=== PATIENT | male | born 1940 | race Caucasian/White ===

== ENCOUNTER 2019-04-15 14:35 | Emergency (ER) | payer MEDICARE, BC ==
[~2019-04-15] VITALS: Ht 175.3 cm; Wt 79.4 kg
[~2019-04-15 14:35] MED LIST: AMLO1TAB39 PO; ASPI81TA52 PO; ATOR10TA87 PO; CAT1P; FLO0.4C PO; HYDR25TA4 PO; MULT-1179 PO; TADA5TAB2 PO; cialis
[2019-04-15 15:34] LABS: BASOPHILS # (AUTO) 0.1 X10'3 (0-0.2); BASOPHILS % (AUTO) 0.8 % (0-1); EOSINOPHILS # (AUTO) 0.2 X10'3 (0-0.9); EOSINOPHILS % (AUTO) 1.9 % (0-6); HEMATOCRIT 42.2 % (42.0-52.0); HEMOGLOBIN 14.9 g/dl (14.0-17.9); LYMPHOCYTES # (AUTO) 1.4 X10'3 (1.1-4.8); LYMPHOCYTES % (AUTO) 18.3 % (21-51); MEAN CORPUSCULAR HEMOGLOBIN 32.2 PG (27.0-31.0); MEAN CORPUSCULAR HGB CONC 35.4 g/dL (33.0-36.5); MEAN PLATELET VOLUME 8.2 FL (7.4-10.4); MONOCYTES # (AUTO) 0.7 X10'3 (0-0.9); MONOCYTES % (AUTO) 8.6 % (2-12); NEUTROPHILS # (AUTO) 5.5 X10'3 (1.8-7.7); NEUTROPHILS % (AUTO) 70.4 % (42-75); PLATELET COUNT 169 X10'3 (140-440); RED BLOOD COUNT 4.64 X10'6 (4.70-6.10); WHITE BLOOD COUNT 7.8 X10'3 (4.5-11.0)
[2019-04-15 15:48] LABS: ALANINE AMINOTRANSFERASE 44 U/L (12-78); ALBUMIN 3.5 G/DL (3.4-5.0); ALKALINE PHOSPHATASE 187 IU/L (46-116); ANION GAP 8 (8-16); ASPARTATE AMINO TRANSFERASE 27 U/L (10-37); BILIRUBIN,TOTAL 0.4 MG/DL (0.1-1.0); BLOOD UREA NITROGEN 42 MG/DL (7-18); BUN/CREATININE RATIO 29.8 (5.4-32.0); CHLORIDE 109 MMOL/L (99-107); CREATININE 1.41 MG/DL (0.60-1.10); GLUCOSE 115 MG/DL (70-104); POTASSIUM 4.4 MMOL/L (3.5-5.1); SODIUM 140 MMOL/L (135-145); TOTAL CARBON DIOXIDE 22.8 MMOL/L (24-32); eGFR 48 ML/MIN
--- NOTE | 2019-04-15 17:56 | NUR ---
PATIENT WAS SEEN AT [facility] ON 04/13/2019, FOR HIGH BLOOD PRESSURE. PATIENT'S MEDICATION WAS CHANGED AND HE IS NOT GETTING IMPROVMENT IN BLOOD PRESSURE READINGS AT HOME. IN ADDITION, PATIENT REPORTS BRADYCARDIA AND LETHARGY FROM THE NEW MEDICATION. BP AT PRESENT IS 192/81.
[2019-04-15] MEDS ORDERED: cloNIDine 0.1 mg tablet PO ONE (18:55)
[2019-04-15] MEDS ORDERED: CLON-529 PO (19:10)
[2019-04-15 19:12] VITALS: BP 185/82
[2019-04-15 19:45] LABS: CLARITY,URINE CLEAR (Clear); COLOR,URINE STRAW (Yellow); GLUCOSE, URINE NEGATIVE (Neg); KETONES,URINE NEGATIVE (Neg); LEUKOCYTE ESTERASE ,URINE NEGATIVE (Neg); NITRITES, URINE NEGATIVE (Neg); OCCULT BLOOD,URINE MODERATE (Neg); PROTEIN,URINE >=300 mg/dl (Neg); UROBILINOGEN,URINE 0.2 E.U/dL (0.2-1.0)
[2019-04-15 19:58] LABS: UA COLLECTION TYPE URINAL
[2019-04-15 20:00] LABS: BACTERIA,URINE NONE SEEN /HPF (Neg); RBC,URINE NONE SEEN /HPF (0-2); SQUAMOUS EPITHELIAL CELL,UR FEW /LPF (FEW); WBC,URINE NONE SEEN /HPF (0-4)
== END 2019-04-15 19:50 | disposition home or self-care (01) ==
LOC: ER 14:36
DX: I10 Essential (primary) hypertension (principal); R51 Headache; Z98.890 Other specified postprocedural states; Z79.82 Long term (current) use of aspirin; Z79.899 Other long term (current) drug therapy
CPT/HCPCS: 36415; 70450; 80053; 81001; 84484; 85025; 93005; 99285

== ENCOUNTER 2022-02-17 07:36 | Day surgery (SDC) | payer MEDICARE, BC ==
[~2022-02-17] VITALS: Ht 172.7 cm; Wt 77.0 kg
[~2022-02-17 07:36] MED LIST changes: +CLON-529 PO
[2022-02-17 07:45] VITALS: BP 156/52
[2022-02-17] MEDS ORDERED: LIDOcaine 1% 30ml preserv. free vial SQ STA (08:17)
[2022-02-17] MEDS ORDERED: NIFE90TA44 PO (08:21)
[2022-02-17] MEDS ORDERED: CAT2P TD (08:21)
[2022-02-17] MEDS ORDERED: LACT1CAP65 PO (08:21)
[2022-02-17] MEDS ORDERED: THIA100T70 PO (08:21)
[2022-02-17] MEDS ORDERED: FERR236T3 PO (08:21)
[2022-02-17] MEDS ORDERED: FURO80TA87 PO (08:32)
[2022-02-17] MEDS ORDERED: ATOR10TA PO (08:32)
[2022-02-17] MEDS ORDERED: VALS160T2 PO (08:32)
[2022-02-17] MEDS ORDERED: QUET50TA PO (08:32)
[2022-02-17] MEDS ORDERED: CHOL100046 PO (08:32)
[2022-02-17] MEDS ORDERED: OMEG-45 PO (08:32)
[2022-02-17] MEDS ORDERED: ASCO250T48 PO (08:32)
[2022-02-17] MEDS ORDERED: FOLI1TAB27 PO (08:32)
[2022-02-17] MEDS ORDERED: LABE200T8 PO (08:32)
[2022-02-17] MEDS ORDERED: LEVO88CA4 PO (08:32)
[2022-02-17] MEDS ORDERED: PYRI-3 PO (08:32)
[2022-02-17] MEDS ORDERED: DOXA8TAB20 PO (08:32)
[2022-02-17 08:55] VITALS: BP 146/50
[2022-02-17 09:00] VITALS: BP 152/55
[2022-02-17 09:15] VITALS: BP 162/61
[2022-02-17 09:30] VITALS: BP 139/67
[2022-02-17 09:45] VITALS: BP 142/68
[2022-02-17 10:04] LABS: GLUCOSE,BODY FLUID 124 MG/DL; LDH,BODY FLUID 51 U/L
[2022-02-17 10:12] LABS: BFAPPEAR HAZY
[2022-02-17 10:13] LABS: BF RBC COUNT 1 /CU MM; BF WBC COUNT 260 /CU MM (0-1000); BFCOLOR YELLOW; BFVOLUME 50 ML; LYMPHOCYTES,BODY FLUID 64 %; MONOCYTES,BODY FLUID 14 %; NEUTROPHILS,BODY FLUID 22 %
[2022-02-17 10:14] LABS: BF MESOTHELIAL CELLS OCCASIONAL
[2022-02-17 10:41] LABS: TOTAL PROTEIN,BODY FLUID < 2.0 G/DL
== END 2022-02-17 09:45 | disposition home or self-care (01) ==
LOC: SSTAY O 07:36
PROVIDERS: ATTEND Radiology Vascular & Interventional Radiology
DX: J91.8 Pleural effusion in other conditions classified elsewhere (principal); J90 Pleural effusion, not elsewhere classified; E78.00 Pure hypercholesterolemia, unspecified; I12.9 Hypertensive chronic kidney disease with stage 1 through stage 4 chronic kidney disease, or unspecified chronic kidney disease; N18.9 Chronic kidney disease, unspecified; Z98.890 Other specified postprocedural states; Z79.899 Other long term (current) drug therapy; E03.9 Hypothyroidism, unspecified; I27.20 Pulmonary hypertension, unspecified
CPT/HCPCS: 32555; 82945; 83615; 84157; 87070; 89051; C1729; J3490

== ENCOUNTER 2023-07-04 12:36 | Outpatient (CLI) | payer MEDICARE, BC ==
[~2023-07-04 12:36] MED LIST changes: -AMLO1TAB39 PO; +ATOR10TA PO; -ATOR10TA87 PO; -CAT1P; -CLON-529 PO; +DOXA4TAB42 PO; +FERR236T3 PO; -HYDR25TA4 PO; +LACT1CAP65 PO; +LEVO88CA4 PO; -MULT-1179 PO; +NIFE90TA61 PO; -TADA5TAB2 PO; +TEMA30CA PO; +VALS160T2 PO; -cialis; +vitamin D3 PO
[2023-07-04] MEDS ORDERED: iohexol 350 MG/ML 50ML vial IV ONE (12:59)
[2023-07-04] MEDS ORDERED: iohexol 350MG/ML 100ml bottle IV ONE (12:59)
== END 2023-07-04 23:59 | disposition home or self-care (01) ==
LOC: RAD 12:36
PROVIDERS: ATTEND Internal Medicine Interventional Cardiology
DX: I70.0 Atherosclerosis of aorta (principal); I73.9 Peripheral vascular disease, unspecified
CPT/HCPCS: 75635; J3490; Q9967

== ENCOUNTER 2024-02-20 09:12 | Day surgery (SDC) | payer MEDICARE, BC ==
[~2024-02-20 09:12] MED LIST changes: +APIX5TAB3 PO; -ASPI81TA52 PO; +CLON1PAT42 TD; -DOXA4TAB42 PO; -FERR236T3 PO; +HYDR100T12 PO; +IRON100V2; +LABE300T4 PO; +LOSA50TA64 PO; +METH200S; +QUET50TA24; -TEMA30CA PO; +TEMA30CA5 PO; -VALS160T2 PO
[2024-02-20 09:45] VITALS: BP 149/53; PULSE 55; RESP 16; TEMP 97.6; O2SAT 96
[2024-02-20] MEDS ORDERED: heparin 1,000 UNITS/NS 500ml 500 ML ONE (09:51)
[2024-02-20] MEDS ORDERED: iohexol 300mg/ml 100ml inj. ONE ×2 (09:51→12:15)
[2024-02-20] MEDS ORDERED: LIDOcaine 1% (10mg/ml)w/preservative inj. 20ml MDV ONE (09:51)
[2024-02-20] MEDS ORDERED: FOLI1TAB27 PO (10:06)
[2024-02-20] MEDS ORDERED: DOCU50LI24 PO (10:06)
[2024-02-20] MEDS ORDERED: APIX2.5T PO (10:06)
[2024-02-20] MEDS ORDERED: THIA50TA14 PO (10:06)
[2024-02-20] MEDS ORDERED: CLON1PAT16 TOP (10:06)
[2024-02-20] MEDS ORDERED: PSYL0.4C2 PO (10:06)
[2024-02-20] MEDS ORDERED: POLY119P2 PO (10:06)
[2024-02-20] MEDS ORDERED: ASPI-611 PO (10:06)
[2024-02-20] MEDS ORDERED: ZINC220T4 PO (10:06)
[2024-02-20] MEDS ORDERED: IRON100V (10:06)
[2024-02-20] MEDS ORDERED: PYRI-3 PO (10:06)
[2024-02-20] MEDS ORDERED: METH200S SQ (10:06)
[2024-02-20] MEDS ORDERED: ACET-75 PO (10:06)
[2024-02-20] MEDS ORDERED: OMEP20CA16 PO (10:06)
[2024-02-20] MEDS ORDERED: VALS160T30 PO (10:06)
[2024-02-20] MEDS ORDERED: PHO667C PO (10:06)
[2024-02-20] MEDS ORDERED: ASCO-330 PO (10:06)
[2024-02-20] MEDS ORDERED: VITE400C PO (10:06)
[2024-02-20] MEDS ORDERED: OMEG-5 PO (10:06)
[2024-02-20 10:13] LABS: BASOPHILS # (AUTO) 0.1 X10'3 (0-0.2); BASOPHILS % (AUTO) 0.8 % (0-1); EOSINOPHILS # (AUTO) 0.3 X10'3 (0-0.9); EOSINOPHILS % (AUTO) 3.3 % (0-6); HEMATOCRIT 31.8 % (42.0-52.0); HEMOGLOBIN 10.9 g/dl (14.0-17.9); LYMPHOCYTES # (AUTO) 1.2 X10'3 (1.1-4.8); LYMPHOCYTES % (AUTO) 14.7 % (21-51); MEAN CORPUSCULAR HEMOGLOBIN 31.1 PG (27.0-31.0); MEAN CORPUSCULAR HGB CONC 34.3 g/dL (33.0-36.5); MEAN CORPUSCULAR VOLUME 90.8 FL (78-98); MEAN PLATELET VOLUME 7.4 FL (7.4-10.4); MONOCYTES % (AUTO) 12.1 % (2-12); NEUTROPHILS # (AUTO) 5.5 X10'3 (1.8-7.7); NEUTROPHILS % (AUTO) 69.1 % (42-75); PLATELET COUNT 141 X10'3 (140-440); RED CELL DISTRIBUTION WIDTH 32.8 % (11.5-14.5)
[2024-02-20 10:19] LABS: ALBUMIN 3.9 G/DL (3.4-5.0); ANION GAP 20 (8-16); BLOOD UREA NITROGEN 144 MG/DL (7-18); BUN/CREATININE RATIO 13.2 (10.0-20.0); CALCIUM 9.9 MG/DL (8.5-10.1); CHLORIDE 103 MMOL/L (99-107); CREATININE 10.94 MG/DL (0.60-1.10); GLUCOSE 121 MG/DL (70-104); POTASSIUM 4.1 MMOL/L (3.5-5.1); SODIUM 140 MMOL/L (135-145); TOTAL CARBON DIOXIDE 16.8 MMOL/L (24-32); eGFR 5 ML/MIN
[2024-02-20 10:23] LABS: APTT 23 SECONDS (22-32); PROTHROMBIN TIME 10.7 SECONDS (9.0-12.0)
[2024-02-20 10:52] LABS: ANISOCYTOSIS 3+; ELLIPTOCYTES FEW; PLATELET ESTIMATE NORMAL; POLYCHROMASIA 1+
[2024-02-20] MEDS ORDERED: fentaNYL/PF 50MCG/1 ML 2ML syringe ONE (10:55)
[2024-02-20] MEDS ORDERED: midazolam 1 mg/ML 2ml injection ONE (10:55)
[2024-02-20] MEDS ORDERED: heparin 1,000unit/ml 10ml vial 10 ML ONE (12:18)
[2024-02-20 13:05] VITALS: BP 169/57; PULSE 66; RESP 12; O2SAT 94
[2024-02-20 13:16] VITALS: BP 167/52; PULSE 64; RESP 14; O2SAT 92
[2024-02-20 13:30] VITALS: BP 165/55; PULSE 61; RESP 14; O2SAT 92
[2024-02-20 13:45] VITALS: BP 137/45; PULSE 57; RESP 14; O2SAT 94
[2024-02-20 14:00] VITALS: BP 129/45; PULSE 56; RESP 14; O2SAT 94
[2024-02-20] MEDS ORDERED: normal saline 1000ml 1,000 ML IV SCH (14:15)
== END 2024-02-20 14:25 | disposition home or self-care (01) ==
LOC: SSTAY O 09:12
PROVIDERS: ATTEND Internal Medicine Critical Care Medicine
DX: T82.858A Stenosis of other vascular prosthetic devices, implants and grafts, initial encounter (principal); Y83.8 Other surgical procedures as the cause of abnormal reaction of the patient, or of later complication, without mention of misadventure at the time of the procedure; I12.0 Hypertensive chronic kidney disease with stage 5 chronic kidney disease or end stage renal disease; N18.6 End stage renal disease; Z88.8 Allergy status to other drugs, medicaments and biological substances; Z79.82 Long term (current) use of aspirin; Z79.899 Other long term (current) drug therapy; Z79.01 Long term (current) use of anticoagulants; Z91.040 Latex allergy status; Z82.49 Family history of ischemic heart disease and other diseases of the circulatory system
CPT/HCPCS: 36415; 36902; 80048; 85025; 85610; 85730; A4620; A6258; A6402; C1725; C1769; C1894; J1644; J2250; J3010; J3490; J7030; Q9967; Z7610; 85008; A6449